=== PATIENT | female | born 1970 | race Caucasian/White ===

== ENCOUNTER → 2024-06-18 | Outpatient (CLI) | payer MEDICAID, SELFPAY ==
--- NOTE | 2024-06-18 14:00 | XR_ITS ---
Examination: Breast ultrasound, unilateral, right complete Date and time of exam: June 18, 2024 at 1415 hours INDICATIONS: Mammogram 02/12/2024 6 mm oval mass upper inner quadrant right breast Technique: Real-time song scale ultrasonographic imaging performed right breast including all 4 quadrants as well as nipple retroareolar and axillary region. Findings: 2:00 oval mass 4 x 3 x 6 mm Right axillary benign-appearing lymph node IMPRESSION: BI-RADS Category 3: Probably benign findings. One additional 6 month right breast sonogram follow-up is needed to document stability of 2:00 nodule described above
== END | disposition home or self-care (01) ==
PROVIDERS: PCP Family Medicine; Referring Provider Nurse Practitioner Family; Visit Provider Nurse Practitioner Family
DX: N63.12 Unspecified lump in the right breast, upper inner quadrant (principal)
CPT/HCPCS: 76641

== ENCOUNTER → 2025-01-11 | Outpatient (CLI) | payer MEDICAID, SELFPAY ==
--- NOTE | 2025-01-11 15:30 | XR_ITS ---
Examination: Breast ultrasound, unilateral, right Date and time of exam: January 11, 2025 1523 hours INDICATIONS: History left breast biopsy 2007, mammogram 02/12/2024 6 mm oval mass upper inner right breast, family history breast cancer Technique: Real-time song scale ultrasonographic imaging performed right breast including all 4 quadrants as well as nipple retroareolar and axillary region. Findings: 2:00 cystic solid mass lobular margins 5 x 3 x 6 mm IMPRESSION: BI-RADS Category 3: Probably benign findings One additional 6 month right breast sonogram follow-up is needed to document stability of cystic solid mass 2:00 position right breast
== END | disposition home or self-care (01) ==
LOC: CDIM 14:56
PROVIDERS: PCP Nurse Practitioner Family; Referring Provider Nurse Practitioner Family; Visit Provider Nurse Practitioner Family
DX: N63.12 Unspecified lump in the right breast, upper inner quadrant (principal)
CPT/HCPCS: 76641